=== PATIENT | female | born 1990 | race American Indian/Alaskan Native ===

== ENCOUNTER 2019-07-09 01:03 | Emergency (ER) | payer SELFPAY ==
[2019-07-09] MEDS ORDERED: Sodium Chloride 0.9% 10 ML Syringe FLUSH PRN (01:32)
[2019-07-09] MEDS ORDERED: HYDROmorphone 0.5 MG/0.5 ML Syringe IVPUSH ONE (01:32)
--- NOTE | 2019-07-09 02:09 | EDM.PDOC ---
ED HPI GENERAL MEDICAL PROBLEM - General Chief Complaint: Abdominal Pain Stated Complaint: ABDOMINAL PAIN Time Seen by Provider: 07/09/19 01:23 Source of Information: Reports: Patient, RN Notes Reviewed - History of Present Illness INITIAL COMMENTS - FREE TEXT/NARRATIVE: 28-year-old female with onset of right-sided abdominal pain 3 hours ago. Pain is right upper abdomen and right flank with some radiation to her back. She did have some nausea and did vomit twice. The nausea is gone. There is been no diarrhea. She felt fine yesterday with no pain, no difficulty eating and drinking. She has had no chest pain with this. No cough fever or chills. She believes that she is about 9 to 10 weeks by dates. 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 Social & Family History - Tobacco Use Smoking Status *Q: Never Smoker Second Hand Smoke Exposure: No - Caffeine Use Caffeine Use: Reports: None - Recreational Drug Use Recreational Drug Use: No - Living Situation & Occupation Living situation: Reports: ED ROS GENERAL - Review of Systems Review Of Systems: See Below Constitutional: Denies: Fever, Chills, Diaphoresis HEENT: Reports: No Symptoms Respiratory: Denies: Shortness of Breath Cardiovascular: Denies: Chest Pain GI/Abdominal: Reports: Abdominal Pain, Nausea, Vomiting. Denies: Diarrhea : Reports: No Symptoms Musculoskeletal: Reports: Back Pain Skin: Reports: Dryness Neurological: Reports: No Symptoms ED EXAM, GI/ABD - Physical Exam Exam: See Below General Appearance: Alert, Mild Distress Throat/Mouth: Normal Inspection, Normal Oropharynx Neck: Supple Respiratory/Chest: No Respiratory Distress, Lungs Clear, Normal Breath Sounds Cardiovascular: Regular Rate, Rhythm GI/Abdominal Exam: Tender (Right upper abdomen lesser extent right lower abdomen and right flank, left abdomen nontender). No: Guarding, Rebound Extremities: Normal Inspection, Normal Range of Motion Skin Exam: Warm, Dry, Normal Color Course - Vital Signs Last Recorded V/S: Last Vital Signs Temp 97.0 F 07/09/19 01:10 Pulse 71 07/09/19 01:10 Resp 24 H 07/09/19 01:10 BP 130/92 H 07/09/19 01:10 Pulse Ox 100 07/09/19 01:10 - Orders/Labs/Meds Orders: Active Orders 24 hr Category Date Time Status Peripheral IV Care [RC] . DIRECTED Care 07/09/19 01:32 Active Sodium Chloride 0.9% [Saline Flush] Med 07/09/19 01:32 Active 10 ml FLUSH ASDIRECTED PRN Peripheral IV Insertion Adult [OM.PC] Stat Oth 07/09/19 01:32 Ordered Medication Orders Sodium Chloride (Saline Flush) 10 ml FLUSH ASDIRECTED PRN PRN Reason: Keep Vein Open Labs: Laboratory Tests 07/09/19 07/09/19 07/09/19 Range/Units 01:50 01:50 01:50 WBC 7.24 (3.98-10.04) K/mm3 RBC 4.40 (3.98-5.22) M/mm3 Hgb 9.6 L (11.2-15.7) gm/dl Hct 31.2 L (34.1-44.9) % MCV 70.9 L (79.4-94.8) fl MCH 21.8 L (25.6-32.2) pg MCHC 30.8 L (32.2-35.5) g/dl RDW Std Deviation 51.8 H (36.4-46.3) fL Plt Count 293 (182-369) K/mm3 MPV 10.2 (9.4-12.3) fl Neut % (Auto) 79.2 H (34.0-71.1) % Lymph % (Auto) 14.0 L (19.3-51.7) % [place] % (Auto) 5.7 (4.7-12.5) % Eos % (Auto) 0.8 (0.7-5.8) Baso % (Auto) 0.0 L (0.1-1.2) % Neut # (Auto) 5.74 (1.56-6.13) K/mm3 Lymph # (Auto) 1.01 L (1.18-3.74) K/mm3 [place] # (Auto) 0.41 H (0.24-0.36) K/mm3 Eos # (Auto) 0.06 (0.04-0.36) K/mm3 Baso # (Auto) 0.00 L (0.01-0.08) K/mm3 Manual Slide Review Abnormal smear Sodium 138 (136-145) mEq/L Potassium 3.3 L (3.5-5.1) mEq/L Chloride 103 (98-107) mEq/L Carbon Dioxide 23 (21-32) mEq/L Anion Gap 15.3 H (5-15) BUN 8 (7-18) mg/dL Creatinine 0.6 (0.55-1.02) mg/dL Est Cr Clr Drug Dosing 102.06 mL/min Estimated GFR (MDRD) > 60 (>60) mL/min BUN/Creatinine Ratio 13.3 L (14-18) Glucose 112 H (74-106) mg/dL Calcium 8.7 (8.5-10.1) mg/dL Total Bilirubin 0.1 L (0.2-1.0) mg/dL AST 14 L (15-37) U/L ALT 22 (14-59) U/L Alkaline Phosphatase 69 (46-116) U/L C-Reactive Protein 0.4 (<1.0) mg/dL Total Protein 7.5 (6.4-8.2) g/dl Albumin 3.6 (3.4-5.0) g/dl Globulin 3.9 gm/dL Albumin/Globulin Ratio 0.9 L (1-2) HCG, Quant mIU/mL Urine Color (Yellow) Urine Appearance (Clear) Urine pH (5.0-8.0) Ur Specific [place] (1.005-1.030) Urine Protein (Negative) Urine Glucose (UA) (Negative) Urine Ketones (Negative) Urine Occult Blood (Negative) Urine Nitrite (Negative) Urine Bilirubin (Negative) Urine Urobilinogen (0.2-1.0) Ur Leukocyte Esterase (Negative) 07/09/19 07/09/19 Range/Units 01:50 02:20 WBC (3.98-10.04) K/mm3 RBC (3.98-5.22) M/mm3 Hgb (11.2-15.7) gm/dl Hct (34.1-44.9) % MCV (79.4-94.8) fl MCH (25.6-32.2) pg MCHC (32.2-35.5) g/dl RDW Std Deviation (36.4-46.3) fL Plt Count (182-369) K/mm3 MPV (9.4-12.3) fl Neut % (Auto) (34.0-71.1) % Lymph % (Auto) (19.3-51.7) % [place] % (Auto) (4.7-12.5) % Eos % (Auto) (0.7-5.8) Baso % (Auto) (0.1-1.2) % Neut # (Auto) (1.56-6.13) K/mm3 Lymph # (Auto) (1.18-3.74) K/mm3 [place] # (Auto) (0.24-0.36) K/mm3 Eos # (Auto) (0.04-0.36) K/mm3 Baso # (Auto) (0.01-0.08) K/mm3 Manual Slide Review Sodium (136-145) mEq/L Potassium (3.5-5.1) mEq/L Chloride (98-107) mEq/L Carbon Dioxide (21-32) mEq/L Anion Gap (5-15) BUN (7-18) mg/dL Creatinine (0.55-1.02) mg/dL Est Cr Clr Drug Dosing mL/min Estimated GFR (MDRD) (>60) mL/min BUN/Creatinine Ratio (14-18) Glucose (74-106) mg/dL Calcium (8.5-10.1) mg/dL Total Bilirubin (0.2-1.0) mg/dL AST (15-37) U/L ALT (14-59) U/L Alkaline Phosphatase (46-116) U/L C-Reactive Protein (<1.0) mg/dL Total Protein (6.4-8.2) g/dl Albumin (3.4-5.0) g/dl Globulin gm/dL Albumin/Globulin Ratio (1-2) HCG, Quant 41112.0 mIU/mL Urine Color Yellow (Yellow) Urine Appearance Clear (Clear) Urine pH 7.0 (5.0-8.0) Ur Specific [place] 1.015 (1.005-1.030) Urine Protein Negative (Negative) Urine Glucose (UA) Negative (Negative) Urine Ketones Negative (Negative) Urine Occult Blood Negative (Negative) Urine Nitrite Negative (Negative) Urine Bilirubin Negative (Negative) Urine Urobilinogen 0.2 (0.2-1.0) Ur Leukocyte Esterase Negative (Negative) Meds: Medications Generic Name Dose Route Start Last Admin Trade Name Freq PRN Reason Stop Dose Admin Sodium Chloride 10 ml 07/09/19 01:32 Saline Flush FLUSH ASDIRECTED PRN Keep Vein Open Discontinued Medications Generic Name Dose Route Start Last Admin Trade Name Freq PRN Reason Stop Dose Admin Hydromorphone HCl 0.5 mg 07/09/19 01:32 07/09/19 01:49 Dilaudid IVPUSH 07/09/19 01:33 0.25 mg ONETIME ONE Administration - Re-Assessments/Exams Free Text/Narrative Re-Assessment/Exam: 07/09/19 02:54 CBC, C-reactive protein normal, other chemistries normal. Urine is clear, no evidence for infection. Checked on patient and her pain is gone, resting comfortably at this time awaiting hCG. 07/09/19 03:14 07/09/19 03:27. Quantitative hCG also good Departure - Departure Time of Disposition: 03:28 Disposition: Home, Self-Care 01 Condition: Fair Clinical Impression: First trimester Abdominal pain Qualifiers: Abdominal location: right upper quadrant Qualified Code(s): R10.11 - Right upper quadrant pain - Discharge Information Referrals: PCP,None [Primary Care Provider] - Forms: ED Department Discharge Additional Instructions: Clear liquids until midmorning, then very careful bland diet as tolerated. Follow-up with your regular medical provider if having further symptoms. Return to ED for pain localizing to right lower abdomen as discussed or if you have severe pain reoccurring right upper abdomen. Sepsis Event Note - Evaluation Sepsis Screening Result: No Definite Risk - Focused Exam Vital Signs: Vital Signs Temp Pulse Resp BP Pulse Ox 07/09/19 01:10 97.0 F 71 24 H 130/92 H 100 Date Exam was Performed: 07/09/19 Time Exam was Performed: 03:30 - My Orders Last 24 Hours: My Active Orders 07/09/19 01:32 Peripheral IV Care [RC] . DIRECTED Sodium Chloride 0.9% [Saline Flush] 10 ml FLUSH ASDIRECTED PRN Peripheral IV Insertion Adult [OM.PC] Stat - Assessment/Plan Last 24 Hours: My Active Orders 07/09/19 01:32 Peripheral IV Care [RC] . DIRECTED Sodium Chloride 0.9% [Saline Flush] 10 ml FLUSH ASDIRECTED PRN Peripheral IV Insertion Adult [OM.PC] Stat
== END 2019-07-09 03:43 | disposition home or self-care (01) ==
LOC: JD.ED 01:03
DX: O99.89 Other specified diseases and conditions complicating pregnancy, childbirth and the puerperium (principal); R10.11 Right upper quadrant pain
CPT/HCPCS: 36415; 80053; 81003; 84702; 85025; 86140; 96374; 99284; J1170; 99283

== ENCOUNTER 2020-01-16 00:52 | Inpatient (IN) | payer MEDICAID ==
[~2020-01-16 00:52] MED LIST: Lidocaine 1.5% with EPINEPHrine 1:200,000 5 ML Amp ONE
[2020-01-16] MEDS ORDERED: Nalbuphine 10 MG/ML Syringe IVPUSH PRN (01:41)
[2020-01-16] MEDS ORDERED: Sodium Chloride 0.9% 10 ML Syringe FLUSH PRN (01:41)
[2020-01-16] MEDS ORDERED: Oxytocin/Lactated Ringers 10 UNIT/1,000 ML BAG IV SCH ×2 (01:45→02:15)
[2020-01-16] MEDS ORDERED: diphenhydrAMINE 50 MG/ML SDV IVPUSH PRN (02:00)
[2020-01-16] MEDS ORDERED: fentaNYL 100 MCG/2 ML SDV EPIDUR PRN (02:00)
[2020-01-16] MEDS ORDERED: Bupivacaine/fentaNYL/NS 100 ML Bag EPIDUR PRN (02:00)
[2020-01-16] MEDS ORDERED: ePHEDrine 50 MG/ML SDV IVPUSH PRN (02:00)
[2020-01-16] MEDS ORDERED: Ampicillin 2 GM in Sodium Chloride 0.9% 100 ML IV ONE (02:00)
[2020-01-16] MEDS: Lactated Ringers 1,000 ML IV SCH ×3 (02:15→05:23)
--- NOTE | 2020-01-16 04:34 | PCM.PREANE ---
Preanesthetic Assessment - Procedure Proposed Procedure: Continuous labor epidural - Anesthesia/Transfusion/Family Hx Anesthesia History: Prior Anesthesia Without Reaction Transfusion History: Prior Transfusion Without Reaction - Review of Systems General: No Symptoms Pulmonary: No Symptoms Cardiovascular: No Symptoms Gastrointestinal: No Symptoms Neurological: No Symptoms Other: Reports: None - Physical Assessment Vital Signs: Last Vital Signs Temp 97.6 F 01/16/20 01:00 Pulse 96 01/16/20 01:00 Resp 14 01/16/20 01:00 BP 111/78 01/16/20 01:00 Pulse Ox 100 01/16/20 01:00 Height: 1.5 m Weight: 69.4 kg ASA Class: 2 Mental Status: Alert & Oriented x3 Airway Class: Mallampati = 2 Dentition: Reports: Normal Dentition Thyro-Mental Finger Breadths: 3 Mouth Opening Finger Breadths: 3 ROM/Head Extension: Full Lungs: Clear to Auscultation, Normal Respiratory Effort Cardiovascular: Regular Rate, Regular Rhythm - Lab Values: Laboratory Last Values WBC 12.22 K/mm3 (3.98-10.04) H 01/16/20 01:55 RBC 3.93 M/mm3 (3.98-5.22) L 01/16/20 01:55 Hgb 11.9 gm/dl (11.2-15.7) D 01/16/20 01:55 Hct 35.8 % (34.1-44.9) 01/16/20 01:55 MCV 91.1 fl (79.4-94.8) D 01/16/20 01:55 MCH 30.3 pg (25.6-32.2) 01/16/20 01:55 MCHC 33.2 g/dl (32.2-35.5) 01/16/20 01:55 RDW Std Deviation 47.2 fL (36.4-46.3) H 01/16/20 01:55 Plt Count 249 K/mm3 (182-369) 01/16/20 01:55 MPV 9.8 fl (9.4-12.3) 01/16/20 01:55 Neut % (Auto) 78.8 % (34.0-71.1) H 01/16/20 01:55 Lymph % (Auto) 12.3 % (19.3-51.7) L 01/16/20 01:55 [place] % (Auto) 7.9 % (4.7-12.5) 01/16/20 01:55 Eos % (Auto) 0.3 (0.7-5.8) L 01/16/20 01:55 Baso % (Auto) 0.1 % (0.1-1.2) 01/16/20 01:55 Neut # (Auto) 9.64 K/mm3 (1.56-6.13) H 01/16/20 01:55 Lymph # (Auto) 1.50 K/mm3 (1.18-3.74) 01/16/20 01:55 [place] # (Auto) 0.96 K/mm3 (0.24-0.36) H 01/16/20 01:55 Eos # (Auto) 0.04 K/mm3 (0.04-0.36) 01/16/20 01:55 Baso # (Auto) 0.01 K/mm3 (0.01-0.08) 01/16/20 01:55 COVID-19 ([place]) Negative (NEGATIVE) 01/16/20 02:16 Blood Type O POSITIVE 01/16/20 01:55 Gel Antibody Screen Negative 01/16/20 01:55 - Allergies Allergies/Adverse Reactions: Allergies Allergy/AdvReac Type Severity Reaction Status Date / Time No Known Allergies Allergy Verified 01/16/20 03:58 - Acknowledgements Anesthesia Type Planned: Epidural Pt an Appropriate Candidate for the Planned Anesthesia: Yes Alternatives and Risks of Anesthesia Discussed w Pt/Guardian: Yes Pt/Guardian Understands and Agrees with Anesthesia Plan: Yes PreAnesthesia Questionnaire HEENT History: Reports: None Cardiovascular History: Reports: None Respiratory History: Reports: None Gastrointestinal History: Reports: None Genitourinary History: Reports: None 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 - SUBSTANCE USE Smoking Status *Q: Never Smoker Recreational Drug Use History: No - HOME MEDS Home Medications: Home Meds Ferrous Sulfate [Iron] 325 mg PO DAILY 01/16/20 [History] Penicillin V Potassium 500 mg PO BID 01/16/20 [History] No122/Iron/Folic Acid [ Multi Tablet] 1 each PO DAILY 01/16/20 [History] - CURRENT (IN HOUSE) MEDS Current Meds: Current Medications Diphenhydramine HCl (Benadryl) 25 mg IVPUSH Q6H PRN PRN Reason: pruritis Ephedrine Sulfate (Ephedrine Sulfate) 5 mg IVPUSH ASDIRECTED PRN PRN Reason: Hypotension Fentanyl (Sublimaze) 100 mcg EPIDUR Q3H PRN PRN Reason: Pain Fentanyl/Bupivacaine HCl (Fentanyl/Bupivacaine/Ns 2 Mcg-0.125% 100 Ml) 100 ml EPIDUR ASDIRECTED PRN PRN Reason: Pain Lactated Ringer's (Ringers, Lactated) 1,000 mls @ 100 mls/hr IV ASDIRECTED MILDRED Last Admin: 01/16/20 02:15 Dose: 100 mls/hr Documented by: Ampicillin Sodium 1 gm/ Sodium (Chloride) 100 mls @ 200 mls/hr IV Q4H MILDRED Oxytocin/Lactated Ringer's (Pitocin In Lr 10 Units/1,000 Ml) 10 unit in 1,000 mls @ 100 mls/hr IV .CONTINUOUS MILDRED; Protocol Oxytocin/Lactated Ringer's (Pitocin In Lr 10 Units/1,000 Ml) 10 unit in 1,000 mls @ 12 mls/hr IV TITRATE MILDRED; Protocol Last Titration: 01/16/20 03:35 Dose: 6 munits/min, 36 mls/hr Documented by: Nalbuphine HCl (Nubain) 10 mg IVPUSH Q2H PRN PRN Reason: Pain Sodium Chloride (Saline Flush) 10 ml FLUSH ASDIRECTED PRN PRN Reason: Keep Vein Open Discontinued Medications Ampicillin Sodium 2 gm/ Sodium (Chloride) 100 mls @ 200 mls/hr IV ONETIME ONE Stop: 01/16/20 02:29 Last Admin: 01/16/20 02:15 Dose: 200 mls/hr Documented by:
[2020-01-16] MEDS ORDERED: Ampicillin 1 GM in Sodium Chloride 0.9% 100 ML IV SCH (06:00)
--- NOTE | 2020-01-16 09:04 | PCM.SN.2 ---
- Free Text/Narrative Note: Stage I - Patient presented with SROM and decreased movement. Progressed to complete with pitocin augmentation and epidural. Stage II - of viable female, weight 3470. 7/8 APGARS at 0756. Head delivered in controlled manner over intact perineum. Body and shoulders atraumatically. To maternal abdomen. Cord clamped and cut. Cord blood collected. Stage III - of intact placenta. 3vc. No laceration.
--- NOTE | 2020-01-16 09:07 | PCM.LDHP ---
L&D History of Present Illness - General Date of Service: 01/16/20 Admit Problem/Dx: Patient Status Order with Admit Dx/Problem 01/16/20 01:00 Patient Status [ADT] Routine 01/16/20 01:42 Patient Status [ADT] Routine Admission Diagnosis/Problem Admission Diagnosis/Problem - History of Present Illness Introduction:: 29 year at 38+ here with SROM Pain Score: 7 - Related Data Allergies/Adverse Reactions: Allergies Allergy/AdvReac Type Severity Reaction Status Date / Time No Known Allergies Allergy Verified 01/16/20 03:58 Home Medications: Home Meds Ferrous Sulfate [Iron] 325 mg PO DAILY 01/16/20 [History] Penicillin V Potassium 500 mg PO BID 01/16/20 [History] No122/Iron/Folic Acid [ Multi Tablet] 1 each PO DAILY 01/16/20 [History] Past Medical History HEENT History: Reports: None Cardiovascular History: Reports: None Respiratory History: Reports: None Gastrointestinal History: Reports: None Genitourinary History: Reports: 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 Social & Family History - Family History Family Medical History: Noncontributory - Tobacco Use Smoking Status *Q: Never Smoker - Caffeine Use Caffeine Use: Reports: None - Recreational Drug Use Recreational Drug Use: No - Living Situation & Occupation Living situation: Reports: H&P Review of Systems - Review of Systems: Review Of Systems: See Below General: Reports: No Symptoms HEENT: Reports: No Symptoms Pulmonary: Reports: No Symptoms Cardiovascular: Reports: No Symptoms Gastrointestinal: Reports: No Symptoms Genitourinary: Reports: No Symptoms Musculoskeletal: Reports: No Symptoms Skin: Reports: No Symptoms Psychiatric: Reports: No Symptoms Neurological: Reports: No Symptoms Hematologic/Lymphatic: Reports: No Symptoms Immunologic: Reports: No Symptoms L&D Exam - Exam Exam: See Below - Vital Signs Vital Signs: Last Vital Signs Temp 36.4 C 08/28/20 01:00 Pulse 96 01/16/20 01:00 Resp 14 01/16/20 01:00 BP 111/78 01/16/20 01:00 Pulse Ox 100 01/16/20 01:00 Weight: 69.4 kg - OB Specific Contraction Intensity: Mild to Moderate Movement: Active Heart Tones: Present Heart Rate (FHR) Variability: Moderate (6-25 bmp) Presentation: Vertex - Flores Score Flores Score Cervix Position: Midposition Flores Score Consistency: Soft Flores Score Effacement: 51-70% Flores Score Dilation: 3-4 cm - Exam General: Alert, Oriented HEENT: PERRLA, Conjunctiva Clear, EACs Clear, EOMI, Hearing Intact, Mucosa Moist & [place], Nares Patent, Normal Nasal Septum, Posterior Pharynx Clear, TMs Clear Neck: Supple, Trachea Midline Lungs: Clear to Auscultation, Normal Respiratory Effort Cardiovascular: Regular Rate, Regular Rhythm GI/Abdominal Exam: Normal Bowel Sounds, Soft, Non-Tender, No Organomegaly, No Distention, No Abnormal Bruit, No Mass, Pelvis Stable Rectal Exam: Normal Exam Back Exam: Normal Inspection, Full Range of Motion Extremities: Normal Inspection, Normal Range of Motion, Non-Tender, No Pedal Edema, Normal Capillary Refill Skin: Warm, Dry, Intact Neurological: Cranial Nerves Intact, Reflexes Equal Bilateral Psychiatric: Alert, Normal Affect, Normal Mood - Patient Data Lab Results Last 24 hrs: Laboratory Results - last 24 hr 01/16/20 01/16/20 01/16/20 Range/Units 01:55 01:55 02:16 WBC 12.22 H (3.98-10.04) K/mm3 RBC 3.93 L (3.98-5.22) M/mm3 Hgb 11.9 D (11.2-15.7) gm/dl Hct 35.8 (34.1-44.9) % MCV 91.1 D (79.4-94.8) fl MCH 30.3 (25.6-32.2) pg MCHC 33.2 (32.2-35.5) g/dl RDW Std Deviation 47.2 H (36.4-46.3) fL Plt Count 249 (182-369) K/mm3 MPV 9.8 (9.4-12.3) fl Neut % (Auto) 78.8 H (34.0-71.1) % Lymph % (Auto) 12.3 L (19.3-51.7) % [place] % (Auto) 7.9 (4.7-12.5) % Eos % (Auto) 0.3 L (0.7-5.8) Baso % (Auto) 0.1 (0.1-1.2) % Neut # (Auto) 9.64 H (1.56-6.13) K/mm3 Lymph # (Auto) 1.50 (1.18-3.74) K/mm3 [place] # (Auto) 0.96 H (0.24-0.36) K/mm3 Eos # (Auto) 0.04 (0.04-0.36) K/mm3 Baso # (Auto) 0.01 (0.01-0.08) K/mm3 COVID-19 ([place]) Negative (NEGATIVE) Blood Type O POSITIVE Gel Antibody Screen Negative Result Diagrams: 01/16/20 01:55 Problem List Initiated/Reviewed/Updated: Yes Orders Last 24hrs: Active Orders 24 hr Category Date Time Status Patient Status [ADT] Routine ADT 01/16/20 01:00 Active Patient Status [ADT] Routine ADT 01/16/20 01:42 Active Activity as Tolerated [RC] PFP Care 01/16/20 01:42 Active Communication Order [RC] ASDIRECTED Care 01/16/20 01:42 Active Heart Tones [RC] ASDIRECTED Care 01/16/20 01:43 Active Notify Provider [RC] ASDIRECTED Care 01/16/20 02:00 Active Notify Provider [RC] PFP Care 01/16/20 01:42 Active Notify Provider [RC] PRN Care 01/16/20 01:42 Active Peripheral IV Care [RC] Q2HR Care 01/16/20 01:43 Active Urinary Catheter Assessment [RC] ASDIRECTED Care 01/16/20 01:41 Active PATIENT RETYPE [BBK] Routine Lab 01/16/20 03:14 Ordered RAPID PLASMA REAGIN,RPR [CHEM] Routine Lab 01/16/20 01:55 Received Ampicillin 1 gm Med 01/16/20 06:00 Active Sodium Chloride 0.9% [Normal Saline] 100 ml IV Q4H Bupivacaine/fentaNYL/NS [fentaNYL/Bupivacaine/NS 2 MCG- Med 01/16/20 02:00 Active 0.125% 100 ML] 100 ml EPIDUR ASDIRECTED PRN Lactated Ringers [Ringers, Lactated] 1,000 ml Med 01/16/20 01:45 Active IV ASDIRECTED Nalbuphine [Nubain] Med 01/16/20 01:41 Active 10 mg IVPUSH Q2H PRN Oxytocin/Lactated Ringers [Pitocin in LR 10 Units/1,000 Med 01/16/20 01:45 Active ML] 10 unit in 1,000 ml IV .CONTINUOUS Oxytocin/Lactated Ringers [Pitocin in LR 10 Units/1,000 Med 01/16/20 02:15 Active ML] 10 unit in 1,000 ml IV TITRATE Sodium Chloride 0.9% [Saline Flush] Med 01/16/20 01:41 Active 10 ml FLUSH ASDIRECTED PRN diphenhydrAMINE [Benadryl] Med 01/16/20 02:00 Active 25 mg IVPUSH Q6H PRN ePHEDrine [ePHEDrine sulfate] Med 01/16/20 02:00 Active 5 mg IVPUSH ASDIRECTED PRN fentaNYL [Sublimaze] Med 01/16/20 02:00 Active 100 mcg EPIDUR Q3H PRN Electronic Heart Tones Ext w TOCO [WOMSER] Oth 01/16/20 01:42 Ordered Routine Electronic Heart Tones Internal [WOMSER] Per Unit Oth 01/16/20 01:42 Ordered Routine Peripheral IV Insertion Adult [OM.PC] Routine Oth 01/16/20 01:42 Ordered Resuscitation Status Routine Resus Stat 01/16/20 01:00 Ordered Medication Orders Diphenhydramine HCl (Benadryl) 25 mg IVPUSH Q6H PRN PRN Reason: pruritis Ephedrine Sulfate (Ephedrine Sulfate) 5 mg IVPUSH ASDIRECTED PRN PRN Reason: Hypotension Fentanyl (Sublimaze) 100 mcg EPIDUR Q3H PRN PRN Reason: Pain Last Admin: 01/16/20 04:39 Dose: 100 mcg Documented by: PETECHE Fentanyl/Bupivacaine HCl (Fentanyl/Bupivacaine/Ns 2 Mcg-0.125% 100 Ml) 100 ml EPIDUR ASDIRECTED PRN PRN Reason: Pain Last Admin: 01/16/20 04:38 Dose: 100 ml Documented by: LEMUEL Lactated Ringer's (Ringers, Lactated) 1,000 mls @ 100 mls/hr IV ASDIRECTED MILDRED Last Admin: 01/16/20 05:23 Dose: 40 mls/hr Documented by: Infusion: 01/16/20 05:23 Dose: 999 mls/hr Documented by: Admin: 01/16/20 04:35 Dose: 999 mls/hr Documented by: Infusion: 01/16/20 04:35 Dose: 100 mls/hr Documented by: Admin: 01/16/20 02:15 Dose: 100 mls/hr Documented by: LEMUEL Ampicillin Sodium 1 gm/ Sodium (Chloride) 100 mls @ 200 mls/hr IV Q4H MILDRED Last Admin: 01/16/20 06:09 Dose: 200 mls/hr Documented by: LEMUEL Oxytocin/Lactated Ringer's (Pitocin In Lr 10 Units/1,000 Ml) 10 unit in 1,000 mls @ 100 mls/hr IV .CONTINUOUS MILDRED; Protocol Oxytocin/Lactated Ringer's (Pitocin In Lr 10 Units/1,000 Ml) 10 unit in 1,000 mls @ 12 mls/hr IV TITRATE MILDRED; Protocol Last Titration: 01/16/20 06:26 Dose: 10 munits/min, 60 mls/hr Documented by: Titration: 01/16/20 05:05 Dose: 8 munits/min, 48 mls/hr Documented by: Titration: 01/16/20 04:22 Dose: 0 munits/min, 0 mls/hr Documented by: Titration: 01/16/20 04:05 Dose: 8 munits/min, 48 mls/hr Documented by: Titration: 01/16/20 03:35 Dose: 6 munits/min, 36 mls/hr Documented by: Titration: 01/16/20 03:05 Dose: 4 munits/min, 24 mls/hr Documented by: Admin: 01/16/20 02:34 Dose: 2 munits/min, 12 mls/hr Documented by: LEMUEL Nalbuphine HCl (Nubain) 10 mg IVPUSH Q2H PRN PRN Reason: Pain Sodium Chloride (Saline Flush) 10 ml FLUSH ASDIRECTED PRN PRN Reason: Keep Vein Open Assessment/Plan Comment:: Term srom. Antibiotics for GBS Anticipate
[2020-01-16] MEDS ORDERED: Witch Hazel Medicated Pads 40/Jar TOP PRN (09:50)
[2020-01-16] MEDS ORDERED: Docusate Sodium 100 MG Cap PO PRN (09:50)
[2020-01-16] MEDS ORDERED: Benzocaine/Menthol 20%-0.5% Spray 56 GM Canister TOP PRN (09:50)
[2020-01-16] MEDS: Acetaminophen 325 MG Tab PO PRN (10:14)
[2020-01-16] MEDS: Ibuprofen 600 MG Tab PO PRN (15:46)
[2020-01-17] MEDS: Ibuprofen 600 MG Tab PO PRN (00:22)
[2020-01-17] MEDS: Acetaminophen 325 MG Tab PO PRN (01:05)
--- NOTE | 2020-01-17 08:16 | PCM.DCSUM1 ---
Discharge Summary - Hospital Course Diagnosis: Stroke: No - Discharge Data Discharge Date: 01/17/20 Discharge Disposition: Home, Self-Care 01 Condition: Good - Referral to Home Health Primary Care Physician: Shira Garcia MD - Patient Summary/Data Hospital Course: Stage I - Patient presented with SROM and decreased movement. Progressed to complete with pitocin augmentation and epidural. Stage II - of viable female, weight 3470. 7/8 APGARS at 0756. Head delivered in controlled manner over intact perineum. Body and shoulders atraumatically. To maternal abdomen. Cord clamped and cut. Cord blood collected. Stage III - of intact placenta. 3vc. No laceration. - Patient Instructions Diet: Usual Diet as Tolerated Activity: No Strenuous Activities Driving: May Drive Today Driving, Other: pelvic rest Notify Provider of: Fever, Increased Pain, Swelling and Redness, Drainage, Nausea and/or Vomiting - Discharge Plan *PRESCRIPTION DRUG MONITORING PROGRAM REVIEWED*: No *COPY OF PRESCRIPTION DRUG MONITORING REPORT IN PATIENT NITA: No Home Medications: Home Meds Ferrous Sulfate [Iron] 325 mg PO DAILY 01/16/20 [History] Penicillin V Potassium 500 mg PO BID 01/16/20 [History] No122/Iron/Folic Acid [ Multi Tablet] 1 each PO DAILY 01/16/20 [History] Referrals: Shira Garcia MD [Primary Care Provider] - - Discharge Summary/Plan Comment DC Time >30 min.: No - Patient Data Vitals - Most Recent: Last Vital Signs Temp 35.9 C L 01/17/20 04:17 Pulse 71 01/17/20 04:17 Resp 16 01/17/20 04:17 BP 119/95 H 01/17/20 04:17 Pulse Ox 96 01/17/20 04:17 Weight - Most Recent: 69.4 kg I&O - Last 24 hours: Intake & Output 01/16/20 01/17/20 01/17/20 22:59 06:59 14:59 Intake Total 320 Balance 320 Lab Results - Last 24 hrs: Laboratory Results - last 24 hr 01/16/20 Range/Units 01:55 RPR Non-reactive (NONREACTIVE) Med Orders - Current: Current Medications Acetaminophen (Tylenol) 650 mg PO Q6H PRN PRN Reason: Pain Last Admin: 01/17/20 01:05 Dose: 650 mg Documented by: Benzocaine/Menthol (Dermoplast Pain Relief [place]) 0 gm TOP ASDIRECTED PRN PRN Reason: Perineal Comfort Measure Last Admin: 01/16/20 15:47 Dose: 1 can Documented by: Docusate Sodium (Colace) 100 mg PO BID PRN PRN Reason: Constipation Ibuprofen (Motrin) 600 mg PO Q6H PRN PRN Reason: Mild pain or fever Last Admin: 01/17/20 00:22 Dose: 600 mg Documented by: Allegra Thomas (Yumiko) 1 pad TOP ASDIRECTED PRN PRN Reason: Pain Discontinued Medications Diphenhydramine HCl (Benadryl) 25 mg IVPUSH Q6H PRN PRN Reason: pruritis Ephedrine Sulfate (Ephedrine Sulfate) 5 mg IVPUSH ASDIRECTED PRN PRN Reason: Hypotension Fentanyl (Sublimaze) 100 mcg EPIDUR Q3H PRN PRN Reason: Pain Last Admin: 01/16/20 04:39 Dose: 100 mcg Documented by: Fentanyl/Bupivacaine HCl (Fentanyl/Bupivacaine/Ns 2 Mcg-0.125% 100 Ml) 100 ml EPIDUR ASDIRECTED PRN PRN Reason: Pain Last Admin: 01/16/20 04:38 Dose: 100 ml Documented by: Lactated Ringer's (Ringers, Lactated) 1,000 mls @ 100 mls/hr IV ASDIRECTED MILDRED Last Admin: 01/16/20 05:23 Dose: 40 mls/hr Documented by: Ampicillin Sodium 2 gm/ Sodium (Chloride) 100 mls @ 200 mls/hr IV ONETIME ONE Stop: 01/16/20 02:29 Last Admin: 01/16/20 02:15 Dose: 200 mls/hr Documented by: Ampicillin Sodium 1 gm/ Sodium (Chloride) 100 mls @ 200 mls/hr IV Q4H MILDRED Last Admin: 01/16/20 06:09 Dose: 200 mls/hr Documented by: Oxytocin/Lactated Ringer's (Pitocin In Lr 10 Units/1,000 Ml) 10 unit in 1,000 mls @ 100 mls/hr IV .CONTINUOUS MILDRED; Protocol Oxytocin/Lactated Ringer's (Pitocin In Lr 10 Units/1,000 Ml) 10 unit in 1,000 mls @ 12 mls/hr IV TITRATE MILDRED; Protocol Last Titration: 01/16/20 07:56 Dose: 166.5 munits/min, 999 mls/hr Documented by: Lidocaine/Epinephrine (Xylocaine-Mpf 1.5% W/Epinephrine 1:200,000) 5 ml .ROUTE .STK-MED ONE Stop: 01/16/20 00:01 Lidocaine/Epinephrine (Xylocaine-Mpf 1.5% W/Epinephrine 1:200,000) 5 ml .ROUTE .STK-MED ONE Stop: 01/16/20 00:01 Nalbuphine HCl (Nubain) 10 mg IVPUSH Q2H PRN PRN Reason: Pain Sodium Chloride (Saline Flush) 10 ml FLUSH ASDIRECTED PRN PRN Reason: Keep Vein Open
[2020-01-17] MEDS ORDERED: Measles, Mumps & Rubella Vaccine 0.5 ML SDV SUBCUT ONE (10:16)
== END 2020-01-17 10:44 | disposition home or self-care (01) | DRG 807 ==
LOC: JD.OBCHECK 00:52 → JD.OB 01:00 → JD.OBCHECK 01:42 → JD.OB 02:09 → OBSVTOIN 07:56 → JD.OB 07:57
PROVIDERS: ADMIT Obstetrics & Gynecology; ATTEND Obstetrics & Gynecology
PROC: 10E0XZZ Delivery of Products of Conception, External Approach (ICD-10-PCS; principal; 2020-01-16)
PROC: 3E0R3BZ Introduction of Anesthetic Agent into Spinal Canal, Percutaneous Approach (ICD-10-PCS; 2020-01-16)
DX: O36.8130 Decreased fetal movements, third trimester, not applicable or unspecified (principal); Z37.0 Single live birth; Z3A.38 38 weeks gestation of pregnancy; Z20.828 Contact with and (suspected) exposure to other viral communicable diseases
CPT/HCPCS: 36415; 51701; 59025; 59409; 85025; 86592; 86850; 86900; 86901; 90471; 90707; A9270-GY; J0290; J2590; J3010; J7050; J7120; U0002

== ENCOUNTER 2020-08-13 18:13 | Emergency (ER) | payer MEDICAID ==
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
[2020-08-13] MEDS ORDERED: Hyoscyamine 0.125 MG Tab.SL SL ONE (19:25)
[2020-08-13] MEDS ORDERED: Alum Hydrox/Mag Hydrox/Simeth 30 ML, Lidocaine 2% 15 ML PO ONE ×2 (19:25)
[2020-08-13] MEDS ORDERED: Ondansetron 4 MG/2 ML SDV IVPUSH ONE (20:19)
[2020-08-13] MEDS ORDERED: HYDROmorphone 0.5 MG/0.5 ML Syringe IVPUSH ONE (20:20)
[2020-08-13] MEDS ORDERED: Sodium Chloride 0.9% 1,000 ML IV SCH (20:30)
--- NOTE | 2020-08-15 11:32 | US ---
Limited abdominal ultrasound: Multiple real-time images of the upper right abdomen were obtained. Pancreas is incompletely seen due to bowel gas. Visualized portions of the pancreas show no discrete abnormality. Liver shows no focal parenchymal abnormality. Right kidney shows no hydronephrosis or discrete mass. Right kidney has a length of 11.5 cm. Numerous gallstones are seen within the gallbladder. Gallbladder wall is slightly thickened. Common bile duct measures normal. Proximal aorta measures 2.9 cm which is believed to be within normal limits. Inferior vena cava is patent. Main portal vein shows normal hepatopedal flow. Impression: 1. Gallstones with mild gallbladder wall thickening. No biliary duct dilatation or pericholecystic fluid is seen. 2. No other acute abnormality is identified on right upper quadrant abdominal ultrasound. Diagnostic code #3 I agree with preliminary report from [facility], finalized on 08/13/20, 10:06 PM CDT
== END 2020-08-13 22:12 | disposition home or self-care (01) ==
LOC: JD.ED 18:13
DX: K80.20 Calculus of gallbladder without cholecystitis without obstruction (principal)
CPT/HCPCS: 36415; 76705; 80053; 81003; 81025; 82150; 83690; 84484; 85007; 85027; 86140; 93005; 96374; 96375; 99284; A9270; J1170; J2405; J7030

== ENCOUNTER 2020-09-02 11:12 | Day surgery (SDC) | payer MEDICAID ==
[~2020-09-02 11:12] MED LIST changes: +Lactated Ringers 1,000 ML IV SCH; +Lidocaine 1%/Sod Bicarbonate in NS 8.4% 1 ML Syringe IDERM PRN; -Lidocaine 1.5% with EPINEPHrine 1:200,000 5 ML Amp ONE; +Sodium Chloride 0.9% 10 ML Syringe FLUSH PRN
[2020-09-02] MEDS ORDERED: fentaNYL 250 MCG/5 ML SDV ONE (11:19)
[2020-09-02] MEDS ORDERED: Midazolam 1 MG/ML 2 ML SDV ONE (11:19)
[2020-09-02] MEDS ORDERED: Propofol 200 MG/20 ML SDV ONE (11:19)
[2020-09-02] MEDS ORDERED: Lidocaine 1% 4 ML ONE (11:44)
--- NOTE | 2020-09-02 12:22 | PCM.PREANE ---
Preanesthetic Assessment - Procedure Proposed Procedure: Laparoscopic cholecystectomy - Anesthesia/Transfusion/Family Hx Anesthesia History: Prior Anesthesia Without Reaction Transfusion History: Prior Transfusion Without Reaction - Review of Systems General: No Symptoms Pulmonary: No Symptoms Cardiovascular: No Symptoms Gastrointestinal: No Symptoms Neurological: No Symptoms Other: Reports: None - Physical Assessment NPO Status Date: 09/01/20 NPO Status Time: 21:00 Vital Signs: 117/89 70 97% ASA Class: 1 Mental Status: Alert & Oriented x3 Airway Class: Mallampati = 1 Dentition: Reports: Normal Dentition, [place](s), Missing Tooth/Teeth (Lt lower canine) Thyro-Mental Finger Breadths: 3 Mouth Opening Finger Breadths: 3 ROM/Head Extension: Full Lungs: Clear to Auscultation, Normal Respiratory Effort Cardiovascular: Regular Rate, Regular Rhythm - Lab Values: Laboratory Last Values Urine HCG, Qual Negative (NEGATIVE) 09/02/20 11:18 - Allergies Allergies/Adverse Reactions: Allergies Allergy/AdvReac Type Severity Reaction Status Date / Time No Known Allergies Allergy Verified 09/01/20 11:45 - Acknowledgements Anesthesia Type Planned: General Anesthesia Pt an Appropriate Candidate for the Planned Anesthesia: Yes Alternatives and Risks of Anesthesia Discussed w Pt/Guardian: Yes Pt/Guardian Understands and Agrees with Anesthesia Plan: Yes PreAnesthesia Questionnaire HEENT History: Reports: None Cardiovascular History: Reports: None Respiratory History: Reports: None Gastrointestinal History: Reports: None Genitourinary History: Reports: None 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: Musculoskeletal History: Reports: None Neurological History: Reports: None Psychiatric History: Reports: None Endocrine/Metabolic History: Reports: None Hematologic History: Reports: Anemia, Blood Transfusion(s) Immunologic History: Reports: None Oncologic (Cancer) History: Reports: None Dermatologic History: Reports: None - Infectious Disease History Infectious Disease History: Reports: None - Past Surgical History Head Surgeries/Procedures: Reports: None HEENT Surgical History: Reports: None Cardiovascular Surgical History: Reports: None Respiratory Surgical History: Reports: None Female Surgical History: Reports: Other (See Below) Other Female Surgeries/Procedures: Cyst removed from ovary. Endocrine Surgical History: Reports: None Neurological Surgical History: Reports: None Musculoskeletal Surgical History: Reports: None Oncologic Surgical History: Reports: None Dermatological Surgical History: Reports: None - SUBSTANCE USE Tobacco Use Status *Q: Never Tobacco User Recreational Drug Use History: No - HOME MEDS Home Medications: Home Meds Ferrous Sulfate [Iron] 325 mg PO DAILY 09/01/20 [History] - CURRENT (IN HOUSE) MEDS Current Meds: Current Medications Lactated Ringer's (Ringers, Lactated) 1,000 mls @ 125 mls/hr IV ASDIRECTED MILDRED Stop: 09/02/20 23:00 Lidocaine/Sodium Bicarbonate (Lidocaine 1%/Sod Bicarbonate In Ns 8.4% 1 Ml Syringe) 0.25 ml IDERM ONETIME PRN PRN Reason: Prior to IV Start Stop: 09/02/20 18:00 Sodium Chloride (Sodium Chloride 0.9% 10 Ml Syringe) 10 ml FLUSH ASDIRECTED PRN PRN Reason: Keep Vein Open Stop: 09/02/20 18:00 Discontinued Medications Bupivacaine HCl/Epinephrine Bitart (Bupivacaine 0.5%/Epinephrine 1:200,000 50 Ml Mdv) Confirm Administered Dose 50 ml .ROUTE .STK-MED ONE Stop: 09/02/20 11:54 Fentanyl (Fentanyl 250 Mcg/5 Ml Sdv) Confirm Administered Dose 250 mcg .ROUTE .STK-MED ONE Stop: 09/02/20 11:20 Lidocaine HCl (Xylocaine-Mpf 1%) Confirm Administered Dose 4 mls @ as directed .ROUTE .STK-MED ONE Stop: 09/02/20 11:45 Midazolam HCl (Midazolam 1 Mg/Ml 2 Ml Sdv) Confirm Administered Dose 4 mg .ROUTE .STK-MED ONE Stop: 09/02/20 11:20 Propofol (Propofol 200 Mg/20 Ml Sdv) Confirm Administered Dose 200 mg .ROUTE .STK-MED ONE Stop: 09/02/20 11:20 Vecuronium [place] (Vecuronium 10 Mg Vial) Confirm Administered Dose 10 mg .ROUTE .STK-MED ONE Stop: 09/02/20 11:21
[2020-09-02] MEDS ORDERED: ceFAZolin 1 GM Vial ONE (13:36)
[2020-09-02] MEDS: Bupivacaine 0.5%/EPINEPHrine 1:200,000 50 ML MDV ONE ×2 (13:39→14:13)
[2020-09-02] MEDS ORDERED: Ondansetron 4 MG/2 ML SDV ONE (13:48)
[2020-09-02] MEDS ORDERED: HYDROmorphone 0.5 MG/0.5 ML Syringe ONE ×2 (13:54→14:34)
[2020-09-02] MEDS ORDERED: HYDROmorphone 0.5 MG/0.5 ML Syringe IVPUSH PRN (14:16)
[2020-09-02] MEDS ORDERED: fentaNYL 100 MCG/2 ML SDV IVPUSH PRN (14:16)
[2020-09-02] MEDS ORDERED: Ketorolac 30 MG/ML SDV ONE (14:34)
[2020-09-02] MEDS ORDERED: Lactated Ringers 1,000 ML ONE (14:36)
--- NOTE | 2020-09-02 14:43 | PCM.PRNOTE ---
- Free Text/Narrative Note: Date: 09/02/2020 Operation: laparoscopic cholecystectomy Surgeon: Moises Frausto MD Indication: symptomatic cholelithiasis Findings: no inflammation. Gallstones. Critical view of safety established. Detailed Report: The patient was taken to the operating room and placed supine on the table. Timeout was performed and general endotracheal anesthesia was initiated. The abdomen was prepped and draped in usual sterile fashion. A Veress needle was placed at the left upper quadrant to establish pneumoperitoneum. Air was aspirated with a needle and syringe just inferior to the umbilicus, and a bladed 5 mm port was placed at this site. A 30 degree 5 mm laparoscope was inserted into the abdomen and contents were inspected. The site of Veress insertion looked good without evidence of inadvertent injury. The Veress needle was removed. Additional ports were placed under laparoscopic visualization. 2 whit tional 5 mm ports were placed in the right upper quadrant, and a bladed 12 mm trocar was placed at the subxiphoid region. The fundus of the gallbladder was grasped and retracted anteriorly and cephalad. The infundibulum was grasped and retracted laterally. Dissection of the cystic structures ensued. A combination of hook monopolar energy and [place] grasper dissection was used to skeletonize the cystic duct and artery. A critical view of safety was obtained. Hemoclips were used to clip the structures prior to transection with laparoscopic jani. The gallbladder was removed from the liver using hook monopolar energy. No bile leak. The specimen was placed in an Endo Catch bag and removed. The raw surface of the liver from where the gallbladder was removed was inspected, and minor areas of hemorrhage were controlled with directed monopolar energy. The dissection field was suctioned dry. A laparoscopic suture passer was used to close the fascia at the 12 mm port site using 0 Vicryl. The right lateral ports were removed under laparoscopic visualization and hemostasis was satisfactory. Pneumoperitoneum was released and the scope was withdrawn. Skin incisions were closed at the level of skin with 4-0 Vicryl. Wounds were dressed with Dermabond. A total of 50 cc 0.5% Marcaine with epinephrine was used for local anesthetic throughout the case.
--- NOTE | 2020-09-03 07:45 | PCM48HPAN ---
Post Anesthesia Note - EVALUATION WITHIN 48HRS OF ANESTHETIC Vital Signs in Normal Range: Yes Patient Participated in Evaluation: Yes Respiratory Function Stable: Yes Airway Patent: Yes Cardiovascular Function Stable: Yes Hydration Status Stable: Yes Pain Control Satisfactory: Yes Nausea and Vomiting Control Satisfactory: Yes Mental Status Recovered: Yes Vital Signs: Last Vital Signs Temp 97.2 F 09/02/20 15:45 Pulse 59 L 09/02/20 15:45 Resp 13 09/02/20 15:45 BP 120/90 09/02/20 15:45 Pulse Ox 95 09/02/20 15:45 - COMMENTS/OBSERVATIONS Free Text/Narrative:: Patient is stable and being transferred to [place] floor extended recovery prior to home discharge.
== END 2020-09-02 19:11 | disposition home or self-care (01) ==
LOC: JD.SDS 11:12 → JD.MS 18:43 → JD.SDS 19:11
PROVIDERS: ATTEND Surgery
DX: K80.10 Calculus of gallbladder with chronic cholecystitis without obstruction (principal)
CPT/HCPCS: 47562; 81025; J0690; J1170; J1885; J2250; J2405; J2704; J2710; J3010; J3490; J7120; 00790